=== PATIENT | female | born 1980 | race Hispanic/Latino ===

== ENCOUNTER 2020-11-17 21:39 | Observation (INO) | payer SELFPAY ==
[~2020-11-17] VITALS: Ht 167.6 cm; Wt 75.0 kg
[2020-11-18] MEDS ORDERED: MIRALAX17 GM PO (00:44)
[2020-11-18] MEDS ORDERED: ZUPLENZ4 MG PO (00:46)
[2020-11-18] MEDS ORDERED: PHENAZOPYRIDIN200 MG PO (00:46)
[2020-11-18] MEDS ORDERED: BACTRIM DS TAB1 EACH PO (00:49)
--- NOTE | 2020-11-18 02:56 | NUR ---
pt ARRIVES TO DE VIA STRETCHER. ABLE TO TRANSFER SELF TO HOSPITAL BED. VIDEO TRANSLATION USED pt CAMBODIAN SPEAKING ONLY. SISTER IN ROOM, EDUCATED ON HOSPITAL POLICY FOR NO VISITORS FOR COVID +. PER OVERNIGHT HOUSEPERSON OKAY TO STAY THE NIGHT, CANNOT LEAVE ROOM AND COME BACK. pt AND SISTER VERBALIZE UNDERSTANDING. ASSESSMENT COMPLETE. pt RATES PAIN 3/10 "IT'S TOLERABLE" IN RUQ. TENDER WITH PALPATION. BOWEL TONES ACTIVE. pt DENIES NAUSEA AT THIS TIME. ORIENTATION TO ROOM PROVIDED. pt IS VISITING FROM [place] AND HAS A ONE YEAR OLD SON AND TWO TWO YEAR OLD TWINS. NPO STATUS EXPLAINED TO pt. VERBALIZES UNDERSTANDING. MOUTH SWAB AT THIS TIME pt C/O DRY MOUTH. [facility].
--- NOTE | 2020-11-18 05:05 | NUR ---
CHECKED ON pt. RESTING IN BED WITH EYES CLOSED. BREATHING EQUAL AND UNLABORED. LIGHTS OFF IN ROOM.
--- NOTE | 2020-11-18 06:15 | NUR ---
IN TO DO VITALS. pt DENIED PAIN. UP TO VOID AND BACK TO BED. VITALS DONE. NPO AT THIS TIME. VISITOR SLEEPING ON COUCH. NO REQUESTS AT THIS TIME. CALL LIGHT WITHIN REACH.
--- NOTE | 2020-11-18 07:31 | NUR ---
REPORT RECEIVED. PT IN BED WITH EYES CLOSED. RESPIRATIONS EQUAL AND NONLABORED. PT IS ON ISOLATION PRECATIONS. LR INFUSING AT 125. CALL LIGHT IN REACH.
--- NOTE | 2020-11-18 10:35 | NUR ---
ASSESSMENT COMPLETED. ANHYDROUS AMMONIA PRODUCTION SUPERVISOR LINE USED. LOVENOX INJECTION GIVEN. ASSISTED PT UP FOR HIBACLENSE SHOWER. PT REPROTS PAIN 1-2/10. PAIN IS IN RUQ. NO NAUSEA. MOUTH SWABS PROVIDED. LUNGS CLEAR. BOWEL TONES ACTIVE. ABDOMEN TENDER. SCD'S PLACED. FLUIDS CHAGED TO D5LR AT 100ML/HR PER ORDER. LR WITH STRAIGHT TUBING AT BEDSIDE. PRE-PROCEDURE CHECKLIST COMPLETED. PT WITH NO QUESTIONS AT THIS TIME. SISTER AT BEDSIDE.
--- NOTE | 2020-11-18 12:35 | NUR ---
DR JOHNSON TO BEDSIDE TO DISCUSS PROCEDURE. SILK SCREEN PRINTER HELPER LINE BUSY. SISTER DAYANA AT BEDSIDE TO HELP TRANSLATE. DJIBOUTIAN GALLBLADDER BOOKLET PROVIDED. SILK SCREEN PRINTER HELPER LINE ANSWERED ONCE WAS OUT OF ROOM. DISCUSSED WHAT WAS SAID AND PT STATES SHE UNDERSTANDS RISK AND BENIFITS. ANASTESIOLOGIST TO BEDSIDE. ITERPRETER USED. ALL PT'S QUESTIONS ANSWERED. PT NOW OFF FLOOR TO SURGERY.
--- NOTE | 2020-11-18 14:13 | CONS ---
[facility] [address], [place] [address] Signed DATE OF CONSULTATION: 11/18/2020 HISTORY OF PRESENT ILLNESS: Gurinder is a 40-year-old female who has three children, two were born vaginally, one with a . She later had a partial hysterectomy. 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 She is and apparently, her does not work. Her sister Kianna also lives with her. For about a year, she has been having trouble with right upper quadrant abdominal pain radiating through to her back. It is worse with meals. Yesterday, it was quite severe. She went to the emergency room at [facility] in [place], [place]. There was some concern about flank pain and so she received a CT scan of the abdomen and pelvis. She has calcified gallstones, but no inflammatory changes and a small umbilical hernia. White count was borderline at 11.4 and liver function tests were fine. Beta-hCG was negative. Consequently, she was sent home with MiraLAX, Pyridium, Zofran, and some Bactrim given the fact that she had some blood and so forth in her urine. She has no primary care provider. Consequently, she was encouraged to find one. Her sister goes to the [facility]. However, Gurinder does not want to use the [facility] for unclear reasons. She continued to have significant pain with nausea, vomiting, and anorexia. She could not take her medications or drink any fluids. She therefore came to in [place], [place] last night. Repeat white count was up to 16,000 again. Liver function tests were all negative along with the lipase. Again, the urine was a little dirty. She seemed to have pain in the right upper quadrant that was radiating through to her back. There were calcified gallstones on the CT scan. Consequently, an ultrasound was ordered and again, she has multiple stones with gallbladder wall slightly thickened 3 mm but an unremarkable common bile duct. Given her current symptoms, she was admitted to the hospital and started on Rocephin and Flagyl. Later, her COVID test came back positive. She has been admitted overnight and hydrated and overall feels a little better. Her sister is with her and helps to interpret. PAST MEDICAL HISTORY: None. PAST SURGICAL HISTORY: and laparoscopic-assisted partial hysterectomy. SOCIAL HISTORY: She does not smoke or drink. She has three children, two born vaginally, one by . She has no primary care provider. No pharmacy. She lives with her and does not drive. Her sister, Kianna Arango is reached at [phone]. Gurinder herself speaks Polish, but her sister speaks Fijian fairly well. FAMILY HISTORY: Not obtained. Electronically Signed By: ROGE JOHNSON MD 11/18/20 1413 PATIENT NAME: GURINDER SANCHES CONSULTATION DATE OF : 76 REPORT #: [id number] PHYSICIAN: ROGE JOHNSON MD PCP: NO PRIMARY CARE PHYSICIAN REPORT IS CONFIDENTIAL AND NOT TO BE RELEASED WITHOUT AUTHORIZATION [facility] [address] [place] [id number] Signed REVIEW OF SYSTEMS: Ten systems reviewed and as included above. ALLERGIES: None. MEDICATIONS: MiraLAX, Pyridium, Zofran and Bactrim. PHYSICAL EXAMINATION: VITAL SIGNS: Her blood pressure is 137/76, heart rate 66, respiratory rate 16, temperature is 98.3. She is 99% on room air. She is 5 feet 6 inches and 75 kg exam. GENERAL: Gurinder is a 40-year-old female lying supine in her hospital bed. Her sister Kianna is in the room. We did have our nurse Mara with us. She does not appear systemically ill or toxic. She is not jaundiced. LUNGS: Clear to auscultation bilaterally. HEART: Regular rate and rhythm without murmurs. ABDOMEN: Generally soft and flat, but she is clearly tender in the right upper quadrant. She said it radiates through to her back. LABORATORY DATA: [place] [address], neutrophils 92, electrolytes unremarkable. COVID test was positive. Beta-hCG of course is negative. Her total bilirubin 0.5, AST 25, ALT 33, alkaline phosphatase 98, lipase 23, albumin is 4.4. Her urinalysis is a bit dirty. RADIOGRAPHIC STUDIES: The CT scan report is reviewed and there was calcified gallstones, but no inflammatory changes and a small umbilical hernia. Ultrasound last night showed the gallstones with gallbladder wall slightly thick at 3 mm and unremarkable common bile duct. ASSESSMENT AND PLAN: Gurinder appears to have fairly classic acute on chronic cholecystitis and cholelithiasis in the face of being positive for COVID. She does not seem to have any specific symptoms at this point related to the COVID virus. We did go over that with her in detail. She will need to be an isolation a good 10 days at the house. In the meantime, she has been admitted, hydrated, started on antibiotics. I brought brochures with me today, one written in Fijian, the other in Polish, so we could look at that very carefully with respect to the gallbladder. We went through this, one written in Polish page by page and she does read Polish and she did very well and I think she understands very clearly. In fact, her sister Kianna has had a laparoscopic cholecystectomy done down in [place]. Consequently, I think they both understand very clearly the difference between laparoscopic versus an open cholecystectomy. They understand there is risk including, but not limited to bleeding, infection, scarring, Electronically Signed By: ROGE JOHNSON MD 11/18/20 1413 PATIENT NAME: GURINDER SANCHES CONSULTATION DATE OF : 76 REPORT #: [id number] PHYSICIAN: ROGE JOHNSON MD PCP: NO PRIMARY CARE PHYSICIAN REPORT IS CONFIDENTIAL AND NOT TO BE RELEASED WITHOUT AUTHORIZATION [facility] [address] [place], [place] [address] Signed change in contour of the skin, damage to main bile duct, damage to the intestines, incisional hernias and other unforeseen comorbidities. We also discussed that she has up to 7% chance of having stones in her distal common bile duct. That would require the ERCP, which is not available in our area. She understands that clearly. They have expressed understanding and would like to proceed with surgery. MD REYMUNDO Schmidt/DANIELLEL /[id number] cc: Roge Johnson MD Copies: ROGE JOHNSON MD ~ Electronically Signed By: ROGE JOHNSON MD 11/18/20 1413 PATIENT NAME: GURINDER SANCHES CONSULTATION DATE OF : 76 REPORT #: [id number] PHYSICIAN: ROGE JOHNSON MD PCP: NO PRIMARY CARE PHYSICIAN REPORT IS CONFIDENTIAL AND NOT TO BE RELEASED WITHOUT AUTHORIZATION
--- NOTE | 2020-11-18 14:41 | NUR ---
11/18/20 1441 Silvia Mauricio 1403 PT ARRIVED TO PACU ON 6L VIA MASK, PT ASLEEP, RESP EVEN AND UNLABORED. VSS. 1405 PT WAKES TO TACTILE STIMULI AND THERAPY TECHNICIAN CALLED, #[id number]. PT REPORTS "SMALL AMOUNT." OF PAIN. PT COUGHING AND GRIMACING WITH COUGHING, RN HELPS PT BRACE ABD WHILE COUGHING. 1410 ICE TO ABD WITH PILLOW TO HELP PT BRACE ABD. 1420 PT REPORTS HAVING A DRY MOUTH AND HAVING NAUSEA. PT COUGHING AND SMALL AMOUNT OF GREEN TO WHITE SPUTUM NOTED. PT REPROTS 5/10 PAIN. O2 MASK REMOVED. 1425 PAIN AND NAUSEA MEDICATION GIVEN. PT SIPS SMALL AMOUNT OF WATER SIPS IN EMESIS BAG. EDUCATING GIVEN ON BREATHING AND PAIN MEDICATION. PT ABLE TO DEEP BREATH OFF AND ON. 1430 PLAN OF CARE DISCUSSED AND ALL QUESTIONS ANSWERED. CALLED ENDED WITH THERAPY TECHNICIAN. 1432 PT ASLEEP AND SMALL AMOUNT OF SNORING NOTED. VSS. O2 SAT 91-93%.
[2020-11-18] MEDS ORDERED: HYDROCODON-ACE1 EAC8 PO (15:08)
--- NOTE | 2020-11-18 15:15 | NUR ---
PT ARRIVED TO FLOOR VIA STRETCHER. EYES CLOSED. PT SLIDE TO BED BY TWO PERSON TRANSFER. VITALS TAKEN AND STABLE. CPOX PLACED. SCD'S ON.PT IS DROWSY BUT AROUSABLE BY VOICE. LAP SITES X4 C/D/I. BOWEL TONES HYPOACTIVE. HEART SOUNDS REGULAR. CALL LIGHT IN REACH. WATER PROVIDED. DENEIS NAUSEA/PAIN.
--- NOTE | 2020-11-18 16:36 | NUR ---
ROUNDED ON PT. POST-OP VITALS COMPLETED. ASSESSMENT COMPLETED. PT DENIES NAUSEA/PAIN. LAP SITES X4 ARE C/D/I. VITALS TAKEN AND STABLE.
--- NOTE | 2020-11-18 17:15 | NUR ---
IN FOR POST OP VITALS AND ASSESSMENT. PT DENEIS PAIN OR NAUSEA. VITALS STABLE. FULL LIQUID DINNER ORDERED. PT UP TO BATHROOM, STEADY ON FEET. VOIDED 500ML. BACK TO BED TO EAT. CALL LIGHT IN REACH.
--- NOTE | 2020-11-18 17:40 | NUR ---
Pt lives in [place] and is here with her spouse visiting her sister. He is also covid +. They have both been vaccinated. Pt denies medical history. Pt is asymptomatic for covid. She will dc tonight and go home to her sisters. Information was obtained through pt's RN using the interpretive line as pt does not speak Kenyan. Pt denies issues from Ayah orantes.
--- NOTE | 2020-11-18 19:59 | NUR ---
explained dc instructions in maltese, written instructins given in maltese by am charge nurse, more questions answered to her satisfaction. pt wanted to know if we could give her the narcotics and the ibuprofen/tylenol as she does not have insurance. medicated prior to dc with 2 norco. pt called her , who is coming from [place]. rx has not been filled. Message left with Dr Cartagena as he is having surgeries at this time for a take home pack for pt. will wait for order. pt room air, no emesis
--- NOTE | 2020-11-18 20:53 | OR ---
[facility] [address] [place], [place] [address] Signed DATE OF OPERATION: 11/18/2020 SURGEON: Roge Cartagena MD PREOPERATIVE DIAGNOSIS: Acute on chronic cholecystitis and cholelithiasis. POSTOPERATIVE DIAGNOSES: 1. Acute on chronic cholecystitis, cholelithiasis. 2. Cholesterolosis. PROCEDURE: Laparoscopic cholecystectomy with intraoperative cholangiogram. ESTIMATED BLOOD LOSS: None. FINDINGS: Gurinder had an unremarkable intraoperative cholangiogram. Her gallbladder was very distended and edematous. She had had punctate hemorrhage throughout the gallbladder wall. She had rather significant cholesterolosis. She had a numerable 2 to 3 mm yellow cholesterol stones in the gallbladder. She had mild pericholecystic fluid. INDICATIONS: Gurinder is a 40-year-old speaking female who for the last year has been having right upper quadrant abdominal pain radiating through to her back. She said it is worse with fatty meals. She said yesterday it was so bad, she had to go the emergency room at [facility] in [place], [place]. There was some concern about flank pain and she had blood in her urine. Consequently, she had a noncontrast CT scan. There were no findings with respect to the genitourinary system, but she did have multiple stones in her gallbladder. The gallbladder wall did not appear thickened on the CT scan. Common bile duct was unremarkable and no significant pericholecystic fluid or inflammation. White count was borderline at 11.2. Liver function tests were unremarkable. Consequently, she went home with Bactrim, Pyridium, Zofran, and MiraLAX for some stool that was found in the right colon. However, she was unable to take anything by mouth. She was having nausea and vomiting. She could not take the medications. She therefore came to [facility] here in [place], [place]. She was tender in the right upper quadrant. Her sister helped interpret and explained it was radiating through to her back. Repeat labs were unremarkable except the white count went up to 16,000, and the neutrophils went up from 92 from 82. Ultrasound of the Electronically Signed By: ROGE CARTAGENA MD 11/18/202052 PATIENT NAME: GURINDER SANCHES OPERATIVE REPORT DATE OF : 76 REPORT #: [id number] PHYSICIAN: ROGE CARTAGENA MD PCP: NO PRIMARY CARE PHYSICIAN REPORT IS CONFIDENTIAL AND NOT TO BE RELEASED WITHOUT AUTHORIZATION [facility] [address] [place], [place] [address] Signed gallbladder showed multiple small stones and the gallbladder wall was mildly thickened at 3 mm and again the common bile duct was unremarkable. I was asked to admit her last night as a general surgeon on-call. She was given Rocephin and Flagyl. She was hydrated and provided pain control. Overall, she felt better this morning, but was still having the pain in the right upper quadrant somewhat laterally and radiated into her back. I brought brochures with me, one written in German and in Rwandan for the gallbladder. With the help of her sister we went page by page very carefully. She understands the location and function of the gallbladder. She understands laparoscopic versus open cholecystectomy. She understands the concept of common bile duct stones and the possible need for ERCP. We reviewed the expected intraop and postop course. She understands there is risk including, but not limited to bleeding, infection, scarring, change in contour of the skin, damage to bowel, damage to the main bile duct, incisional hernias and other unforeseen comorbidities. In addition, she tested positive for COVID. Her sister uses the [facility]. However, Gurinder would prefer to establish with a primary care provider elsewhere in [place]. We encouraged her to do that given her age, the COVID virus and the fact that she had blood in her urine. She understand she needs to be in isolation for at least 10 days when she goes home. She and her sister had expressed understanding and wished to proceed with the gallbladder surgery. PROCEDURE NOTE: Gurinder was brought down from her hospital room directly into the operating room. She was already on preoperative antibiotics along with subcutaneous Lovenox. SCDs were utilized. She had been prepped and draped in the usual sterile fashion. All staff was aware of the COVID status with appropriate protective devices. She was prepped and draped in the usual sterile fashion. All trocars were placed in usual positions under direct visualization of the camera without difficulty. Pictures were taken throughout for photodocumentation. The findings were as above. The gallbladder was extremely tense and we had to create a small hole in the gallbladder and suction out mainly clear green bile. After this, the gallbladder was elevated in the right upper quadrant. The triangle of Calot was dissected carefully with [place] dissectors. A clip had been placed across the cystic artery and it was divided. The intraoperative cholangiocatheter was then inserted into the cystic duct. The intraoperative cholangiogram was found to be unremarkable. The cystic duct stump was secured with a PDS Endoloop. Two clips were placed across the cystic duct stump to carrie its location. After this, the gallbladder was slowly and carefully removed from the gallbladder fossa with the help of the cautery. The gallbladder was placed into an EndoCatch bag. The right upper quadrant was irrigated and suctioned out until clear. We used our laparoscopic suturing device to pass 0-Vicryl suture on either side of the fascia of the subxiphoid trocar site. This was tied down to close this fascia primarily. After this, all the gas was allowed to escape and all trocars were removed. The gallbladder was passed to the circulating nurse and opened on the back table for photodocumentation. We closed the fascia of the supraumbilical trocar site with interrupted [id number] Electronically Signed By: ROGE CARTAGENA MD 11/18/202052 PATIENT NAME: GURINDER SANCHES OPERATIVE REPORT DATE OF : 76 REPORT #: [id number] PHYSICIAN: ROGE CARTAGENA MD PCP: NO PRIMARY CARE PHYSICIAN REPORT IS CONFIDENTIAL AND NOT TO BE RELEASED WITHOUT AUTHORIZATION [address] [address] Signed 0-Vicryl sutures. Local anesthetic was injected in all trocar sites. Each trocar site was irrigated and suctioned out until clear. The skin and dermis of each trocar site were closed with interrupted 3-0 subcuticular Monocryl sutures. Dry gauze and tape were then applied to all incisions. Gurinder was weaned from anesthesia, extubated in the OR and 14 minutes were allowed to pass to circulate the air. After that, she was taken directly into an isolation room in stable condition. Roge Cartagena MD ALB/MODL /[id number] cc: Roge Cartagena MD Copies: ROGE CARTAGENA MD ~ Electronically Signed By: ROGE CARTAGENA MD 11/18/202052 PATIENT NAME: GURINDER SANCHES OPERATIVE REPORT DATE OF : 76 REPORT #: [id number] PHYSICIAN: ROGE CARTAGENA MD PCP: NO PRIMARY CARE PHYSICIAN REPORT IS CONFIDENTIAL AND NOT TO BE RELEASED WITHOUT AUTHORIZATION
--- NOTE | 2020-11-18 21:41 | NUR ---
take home pack for pratik and lilian, all dc instructins and rx reread to pt in irish. all precautions explained, stated understanding. no n/v,
--- NOTE | 2020-11-18 21:43 | NUR ---
Pt dc home via w/c with all writtens instructions, RX, and take home packs for zofran and norco. no c/o pain. no emesis, has met criteria. voided. IV site removed, 2x2 in [address]. dc with all belongings, acompanied by family. aware to refill prescriptions in am, all concerns addressed as she is concerned about paying for surgery and her meds, instructed to call [facility] in am, stated understanding, aware of language barriers. all explained in North Korean by this nurse. both stated understanding
--- NOTE | 2020-11-19 17:25 | PATH ---
[facility] [address] [place], [place] [address] Signed SPECIMEN(S): A GALLBLADDER AND STONES SPECIMEN SOURCE: A. GALLBLADDER AND STONES CLINICAL HISTORY: Cholecystitis. FINAL PATHOLOGIC DIAGNOSIS: Gallbladder, cholecystectomy: - Chronic cholecystitis. - Cholelithiasis. - Cholesterolosis. - No evidence of neoplasia. PATRICIAK:cristina:C2NR MICROSCOPIC EXAMINATION: Histologic sections of all submitted blocks are examined by light microscopy. These findings, together with the gross examination, support the pathologic diagnosis. GROSS DESCRIPTION: The specimen, labeled "SL, gallbladder," is received in formalin and consists of Specimen: Previously opened gallbladder. Dimensions: 8.5 cm in length and 7.0 cm inner circumference. Serosa: Violaceous-red and focally congested. Cystic Duct: Cannot be determined. Calculi: Numerous green gallstones within the container that range size from 0.1-0.3 cm in greatest dimension. Mucosa: [place]-red, velvety with yellow flecking. Wall thickness: 0.2 cm. Lymph node: No pericystic lymph nodes are grossly identified. Additional: None. Grocery Clerk Stocking sections are submitted in cassette (A1). JS (under the direct supervision of a pathologist) The Gross Description was prepared using a voice recognition system. The report was reviewed for accuracy; however, sound-alike word errors, addition and/or deletions may occur. If there is any question about this report, please contact Client Services. PATIENT NAME: GURINDER SANCHES PATHOLOGY DATE OF : 76 REPORT #: [id number] PHYSICIAN: STEPHANIE RUEDA PCP: NO PRIMARY CARE PHYSICIAN REPORT IS CONFIDENTIAL AND NOT TO BE RELEASED WITHOUT AUTHORIZATION [facility] [address] [place] [address] [address] [place] [address] Signed PERFORMING LABORATORY: The technical component was performed by [facility], [address] [place] [address] (Physician Liaison: Angela Jeffrey MD; CLIA# [id number]). Professional [place] [address] (Physician Liaison: Angela Jeffrey MD; CLIA# [id number]). Diagnostician: Bertin Crowell MD Pathologist Electronically Signed 11/19/2020 Copies: ~ PATIENT NAME: GURINDER SANCHES PATHOLOGY DATE OF : 76 REPORT #: [id number] PHYSICIAN: STEPHANIE RUEDA PCP: NO PRIMARY CARE PHYSICIAN REPORT IS CONFIDENTIAL AND NOT TO BE RELEASED WITHOUT AUTHORIZATION
== END 2020-11-18 21:43 | disposition home or self-care (01) ==
LOC: ED 21:39 → MS 21:41
PROVIDERS: ADMIT Colon & Rectal Surgery; ATTEND Colon & Rectal Surgery
PROC: BF03YZZ Plain Radiography of Gallbladder and Bile Ducts using Other Contrast (ICD-10-PCS; 2020-11-18)
PROC: 0FT44ZZ Resection of Gallbladder, Percutaneous Endoscopic Approach (ICD-10-PCS; principal; 2020-11-18 12:15)
DX: K80.12 Calculus of gallbladder with acute and chronic cholecystitis without obstruction (principal); U07.1 COVID-19; Z79.899 Other long term (current) drug therapy
CPT/HCPCS: 00790; 74300; 76705; 80053; 81001; 83690; 84703; 85025; 96365; 96372; 96375; 99285-25; C9803; G0378; J0131; J0696; J1100; J1650; J2270; J2405; J2704; J3010; J3475; J7121; Q9967; U0003